=== PATIENT | male | born 1950 | race Hispanic/Latino ===

== ENCOUNTER → 2018-07-07 | Outpatient (CLI) | payer OTHER ==
--- NOTE | 2018-07-07 12:01 | Diagnostic Imaging Report ---
EXAM: US ABDOMEN COMPLETE DATE: 07/07/2018 10:00 AM COMPARISON: None TECHNIQUE: Transverse and longitudinal ward scale and color doppler sonographic images of the abdomen were obtained. FINDINGS: LIVER Measures 15.9 cm in the right midclavicular line. Increased echogenicity of the liver with normal contour, no evidence of solid mass. Anechoic cyst measuring up to 3.3 cm. Anechoic cyst with small echogenic foci at the wall measuring up to 1.2 cm. SPLEEN Measures 11.2 cm in maximum diameter. Multiple echogenic foci, which may represent granulomas. GALLBLADDER Status post cholecystectomy. BILE DUCTS No intra nor extra-hepatic biliary dilation. Common bile duct measures 0.3 cm PANCREAS: Limited evaluation due to overlying bowel gas. RIGHT KIDNEY: Measures 10.9 cm Echogenicity: Normal Collecting System: No hydronephrosis Stones: None Cyst/Mass: None LEFT KIDNEY: Measures 12.7 cm Echogenicity: Normal Collecting System: No hydronephrosis Stones: None Cyst/Mass: None VESSELS: Aorta: Limited evaluation due to overlying bowel gas. Inferior Vena Cava: Visualized portions are normal Main Portal Vein: Measures 0.8 cm, normal size with hepatopetal flow. FREE FLUID: None IMPRESSION: Borderline hepatomegaly. Hepatic steatosis. No sonographic evidence of solid hepatic mass. Simple hepatic cyst and additional minimally complex hepatic cyst. Signed by: Dr. Miguel Hernandez MD on 07/07/2018 11:58 AM
== END ==
LOC: US 09:03
PROVIDERS: ATTEND Internal Medicine Gastroenterology
DX: Z12.11 Encounter for screening for malignant neoplasm of colon (principal); B18.2 Chronic viral hepatitis C; E66.3 Overweight; Z71.3 Dietary counseling and surveillance
CPT/HCPCS: 76700

== ENCOUNTER → 2018-07-24 | Day surgery (SDC) | payer OTHER ==
[2018-07-23 10:24] LABS: BASOPHILS # (AUTO) 0.1 (0.0-0.1); BASOPHILS % 0.9 % (0.0-1.0); EOSINOPHILS # (AUTO) 0.2 (0.0-0.4); EOSINOPHILS % 2.8 % (0.0-6.0); HEMATOCRIT 44.9 % (38.2-49.6); LYMPHOCYTES # (AUTO) 2.3 (1.0-3.2); LYMPHOCYTES % 36.6 % (18.0-39.1); MEAN CORPUSCULAR HEMOGLOBIN 29.8 pg (28-32); MEAN CORPUSCULAR HGB CONC 33.4 g/dL (31-35); MEAN CORPUSCULAR VOLUME 89.3 fL (81-99); MONOCYTES # (AUTO) 0.5 (0.2-0.8); MONOCYTES % 7.6 % (4.4-11.3); NEUTROPHILS # (AUTO) 3.3 (2.1-6.9); NEUTROPHILS % 51.8 % (38.7-80.0); PLATELET COUNT 201 x10e3/uL (140-360); RED BLOOD COUNT 5.03 x10e6/uL (4.3-5.7); RED CELL DISTRIBUTION WIDTH 13.5 % (11.7-14.4)
[2018-07-23 10:34] LABS: INR 0.9
[2018-07-23 10:35] LABS: PARTIAL THROMBOPLASTIN TIME 26.5 seconds (23.8-35.5)
[2018-07-23 10:41] LABS: ALBUMIN/GLOBULIN RATIO 1.4 (0.8-2.0); ANION GAP 14.3 mmol/L (8-16); CALCIUM 9.4 mg/dL (8.4-10.2); CREATININE, SERUM 1.21 mg/dL (0.72-1.25); POTASSIUM 4.3 mmol/L (3.5-5.1)
[~2018-07-24] MED LIST: FENTANYL CITRATE/PF 100MCG/2 ML INJ ONE; MIDAZOLAM HCL 2 MG/2 ML VIAL ONE; PROPOFOL IV EMULSION 10 MG/ML 50 ML VIAL ONE
--- OUTSIDE RECORDS SUMMARY | 2018-07-24 06:29 | XMS REPORT ---
Author Author [facility] Address Unknown Phone Unavailable Care Team Providers Care Chimney Repairer Name Role Phone Marco Antonio HARRIS Unavailable Unavailable Problems This patient has no known problems. Allergies, Adverse Reactions, Alerts This patient has no known allergies or adverse reactions. Medications This patient has no known medications. Results Test Description Test Time Test Comments Text Results Atomic Results Result Comments US ABDOMEN COMPLETE 2018-07-07 11:53:00 [place] [id number] Patient Name: KWASI SWAIN MR #: [id number] : 1950 Age/Sex: 68/M Req #: [id number] [facility] Physician: Ordered by: MOLLY HARRIS MD Report #: [id number] Location: Room/Bed: Procedure: [id number] US/US ABDOMEN COMPLETE Exam Date: 07/07/18 Exam Time: 0946 REPORT STATUS: Signed EXAM: US ABDOMEN COMPLETE DATE: 07/07/2018 10:00 AM COMPARISON: None TECHNIQUE: Transverse and longitudinal ward scale and color doppler sonographic images of the abdomen were obtained. FINDINGS: LIVER Measures 15.9 cm in the right midclavicular line. Increased echogenicity of the liver with normal contour, no evidence of solid mass. Anechoic cyst measuring up to 3.3 cm. Anechoic cyst with small echogenic foci at the wall measuring up to 1.2 cm. SPLEEN Measures 11.2 cm in maximum diameter. Multiple echogenic foci, which may represent granulomas. GALLBLADDER Status post cholecystectomy. BILE DUCTS No intra nor extra-hepatic biliary dilation. Common bile duct measures 0.3 cm PANCREAS: Limited evaluation due to overlying bowel gas. RIGHT KIDNEY: Measures 10.9 cm Echogenicity: Normal Collecting System: No hydronephrosis Stones: None Cyst/Mass: None LEFT KIDNEY: Measures 12.7 cm Echogenicity: Normal Collecting System: No hydronephrosis Stones: None Cyst/Mass: None VESSELS: Aorta: Limited evaluation due to overlying bowel gas. Inferior Vena Cava: Visualized portions are normal Main Portal Vein: Measures 0.8 cm, normal size with hepatopetal flow. FREE FLUID: None IMPRESSION: Borderline hepatomegaly. Hepatic steatosis. No sonographic evidence of solid hepatic mass. Simple hepatic cyst and additional minimally complex hepatic cyst. Signed by: Dr. Ida Horner MD on 07/07/2018 11:58 AM Dictated By: IDA HORNER MD [id number] Transcribed By: DUGLAS on 07/07/18 [id number] COPY TO: MOLLY HARRIS MD
--- NOTE | 2018-07-24 07:10 | NUR ---
SPIRITUAL CARE - Pre-Surgery Assessment: Pt in bed. Pt's at bedside. Pt reported supportive attention from family and friends. Intervention: I provided pastoral presence, hospitality, prayer, and sympathetic listening. I acquainted pt with availability of student development advisor while hospitalized. Outcome: Pt expressed appreciation for visit. No need for follow up indicated at this time. SHABANA ROGERS Windmill Technician Spiritual Care Department O: [phone] Pager: [phone] calling [phone])
[2018-07-24 08:25] VITALS: BP 101/71
== END | disposition home or self-care (01) ==
LOC: OR 06:27
PROVIDERS: ATTEND Internal Medicine Gastroenterology
DX: Z12.11 Encounter for screening for malignant neoplasm of colon (principal); K64.8 Other hemorrhoids; K21.9 Gastro-esophageal reflux disease without esophagitis; Z71.3 Dietary counseling and surveillance; B18.2 Chronic viral hepatitis C; E66.3 Overweight; Z01.810 Encounter for preprocedural cardiovascular examination; Z01.812 Encounter for preprocedural laboratory examination; Z68.28 Body mass index [BMI] 28.0-28.9, adult
CPT/HCPCS: 36415; 45378; 80053; 85025; 85610; 85730; 93005; J2250